=== PATIENT | male | born 1950 | race Two or more races ===

== ENCOUNTER 2019-01-06 19:10 | Emergency (ER) | payer OTHER ==
[~2019-01-06] VITALS: Ht 177.8 cm; Wt 74.8 kg
[~2019-01-06 19:10] MED LIST: AMILORIDE PO
[2019-01-06 20:45] LABS: Urine Bacteria NONE SEEN /hpf (None Seen); Urine Blood Negative /uL (Negative); Urine Mucus FEW (None Seen); Urine Specific Gravity 1.014 (1.001-1.035); Urine WBC <1 /hpf (0 - 3)
[2019-01-06 21:14] LABS: Basophils # (auto) 0 uL; Basophils % (auto) 0.7 % (0.0-2.0); Eosinophils # (auto) 0.1 uL; Lymphocytes # (auto) 0.6 uL; Monocytes # (auto) 0.3 uL; Nucleated Red Blood Cells % 0.1 %; White Blood Cell 3.2 10^3/uL (4.4-10.8)
[2019-01-06 21:17] LABS: Eosinophils % (auto) 3.2 % (0.0-7.0); Hematocrit 36.1 % (41.0-53.0); Lymphocytes % (auto) 19.1 % (10.0-50.0); Mean Corpuscular Hemoglobin 25.5 pg (28.0-32.0); Mean Corpuscular Hgb Conc. 33.4 g/dL (32.0-36.0); Mean Corpuscular Volume 76.5 fL (80.0-100.0); Neutrophils # (auto) 2.1 uL; Platelet Count (auto) 95 10^3/uL (140-450); Red Blood Cells 4.72 10^6/uL (4.5-5.90); Red Cell Distribution Width 14.4 % (11.8-14.3)
[2019-01-06 21:30] LABS: Alanine Aminotransferase 31 U/L (16-61); Albumin 3.6 g/dL (3.4-5.0); Amylase 117 U/L (25-115); Anion Gap 7 (5-15); Aspartate Aminotransferase 36 U/L (15-37); BUN/Creatinine Ratio 18.6; Blood Urea Nitrogen 24 mg/dL (7-18); Calcium 8.8 mg/dL (8.5-10.1); Carbon Dioxide 26 mmol/L (21-32); Chloride 109 mmol/L (98-107); GFR African American 71 mL/min; GFR Non-African American 59 mL/min; Glucose 105 mg/dL (74-106); Lipase 199 U/L (73-393); Potassium 3.1 mmol/L (3.5-5.1); Sodium 142 mmol/L (136-145)
[2019-01-06 21:46] LABS: Alkaline Phosphatase 92 U/L (45-117); Bilirubin, Total 0.4 mg/dL (0.2-1.0); Total Protein 7.9 g/dL (6.4-8.2)
[2019-01-06] MEDS ORDERED: POTASSIUM CHL 20 Meq TABLET PO ONE (22:45)
[2019-01-06] MEDS ORDERED: HYDROcodone-ACET 10/325MG TAB PO ONE (23:00)
[2019-01-06 23:19] LABS: INR 0.91 (0.9-1.15); Partial Thromboplastin Time 21.9 sec (23.78-33.04); Prothrombin Time 9.8 sec (9.27-12.13)
[2019-01-07 00:31] VITALS: BP 121/66
== END 2019-01-07 01:31 | disposition home or self-care (01) ==
LOC: ER 19:10
DX: D72.819 Decreased white blood cell count, unspecified (principal); E87.6 Hypokalemia; K43.9 Ventral hernia without obstruction or gangrene; F17.210 Nicotine dependence, cigarettes, uncomplicated; Z88.3 Allergy status to other anti-infective agents; Z88.8 Allergy status to other drugs, medicaments and biological substances; Z48.23 Encounter for aftercare following liver transplant
CPT/HCPCS: 36415; 71045; 74176; 80053; 81001; 82150; 83605; 83690; 83735; 85025; 85610; 85730

== ENCOUNTER 2021-03-10 11:09 | Inpatient (IN) | payer OTHER ==
[~2021-03-10] VITALS: Ht 180.3 cm; Wt 80.1 kg
[2021-03-10 12:30] LABS: Basophils # (auto) 0 10 ^3/uL (0-0.2); Basophils % (auto) 0.4 % (0.0-2.0); Eosinophils # (auto) 0.1 10 ^3/uL (0-0.8); Eosinophils % (auto) 1.3 % (0.0-7.0); Hematocrit 34.9 % (41.0-53.0); Hemoglobin 11.5 g/dL (13.5-17.5); Lymphocytes # (auto) 0.5 10 ^3/uL (0.4-5.4); Lymphocytes % (auto) 12.6 % (10.0-50.0); Mean Corpuscular Hemoglobin 28.6 pg (28.0-32.0); Mean Corpuscular Volume 86.5 fL (80.0-100.0); Monocytes # (auto) 0.3 10 ^3/uL (0-1.3); Monocytes % (auto) 6.8 % (0.0-12.0); Neutrophils # (auto) 3.3 10 ^3/uL (1.6-8.6); Neutrophils % (auto) 78.9 % (37.0-80.0); Platelet Count (auto) 116 10^3/uL (140-450); Red Blood Cells 4.03 10^6/uL (4.5-5.90); Red Cell Distribution Width 14.2 % (11.8-14.3); White Blood Cell 4.2 10^3/uL (4.4-10.8)
[2021-03-10] MEDS ORDERED: HYDROcodone-ACET 10/325MG TAB PO PRN (12:45)
[2021-03-10] MEDS ORDERED: ONDANSETRON HCL 4 MG/2 ML VIAL IV ONE (12:45)
[2021-03-10] MEDS ORDERED: MORPHINE SULF INJ 2 MG/ML SYRINGE 1ML IV PRN (12:45)
[2021-03-10] MEDS ORDERED: NITROGLYCERIN 0.4 MG SL TAB SL PRN (12:45)
[2021-03-10] MEDS ORDERED: ONDANSETRON HCL 4 MG/2 ML VIAL IV PRN (12:45)
[2021-03-10] MEDS ORDERED: MORPHINE SULFATE 4 MG/ML SYR/VIAL IV ONE (12:45)
[2021-03-10 12:46] LABS: INR 1.03 (0.9-1.15); Partial Thromboplastin Time 24.6 sec (23.0-31.2)
[2021-03-10 12:55] LABS: Albumin 3.8 g/dL (3.4-5.0); Potassium 3.9 mmol/L (3.5-5.1)
[2021-03-10 12:58] LABS: BUN/Creatinine Ratio 14.8; Bilirubin, Total 0.7 mg/dL (0.2-1.0); Total Protein 7.2 g/dL (6.4-8.2)
[2021-03-10] MEDS ORDERED: hydrALAZINE HCL 20 MG/ML VL IV PRN (13:00)
[2021-03-10] MEDS ORDERED: SODIUM CHLORIDE 0.9% 1,000 ML IV ONE (13:00)
[2021-03-10] MEDS: MORPHINE SULF INJ 2 MG/ML SYRINGE 1ML IV PRN ×2 (18:41→22:44)
[2021-03-10 22:00] VITALS: BP 107/54
[2021-03-10] MEDS ORDERED: METO25TA36 PO (23:12)
[2021-03-10] MEDS ORDERED: ATO40T PO (23:12)
[2021-03-10] MEDS ORDERED: PANT40TA2 PO (23:12)
[2021-03-10] MEDS ORDERED: CHLO25TA2 PO (23:12)
[2021-03-10] MEDS ORDERED: TACR1GRA PO ×2 (23:12)
[2021-03-10] MEDS ORDERED: AML5T GT (23:12)
[2021-03-10] MEDS ORDERED: FERR-20 PO (23:12)
[2021-03-10] MEDS ORDERED: MYCO250C PO (23:12)
[2021-03-11] MEDS: MORPHINE SULF INJ 2 MG/ML SYRINGE 1ML IV PRN ×3 (04:24→13:46)
[2021-03-11 05:00] VITALS: BP 116/53
[2021-03-11 06:15] LABS: Basophils # (auto) 0 10 ^3/uL (0-0.2); Basophils % (auto) 0.4 % (0.0-2.0); Eosinophils # (auto) 0.1 10 ^3/uL (0-0.8); Hematocrit 32.9 % (41.0-53.0); Lymphocytes # (auto) 0.6 10 ^3/uL (0.4-5.4); Lymphocytes % (auto) 13.6 % (10.0-50.0); Mean Corpuscular Hemoglobin 28.7 pg (28.0-32.0); Mean Corpuscular Hgb Conc. 33.3 g/dL (32.0-36.0); Mean Corpuscular Volume 86.1 fL (80.0-100.0); Monocytes # (auto) 0.5 10 ^3/uL (0-1.3); Monocytes % (auto) 10.9 % (0.0-12.0); Neutrophils # (auto) 3.1 10 ^3/uL (1.6-8.6); Neutrophils % (auto) 73.1 % (37.0-80.0); Nucleated Red Blood Cells % 0.1 %; Platelet Count (auto) 112 10^3/uL (140-450); Red Blood Cells 3.82 10^6/uL (4.5-5.90); White Blood Cell 4.2 10^3/uL (4.4-10.8)
[2021-03-11 06:44] LABS: Potassium 3.8 mmol/L (3.5-5.1)
[2021-03-11 06:59] LABS: Albumin 3.5 g/dL (3.4-5.0); Bilirubin, Total 0.8 mg/dL (0.2-1.0); Calcium 8.3 mg/dL (8.5-10.1); Total Protein 6.5 g/dL (6.4-8.2)
[2021-03-11 07:06] LABS: Urine Bacteria FEW /hpf (None Seen); Urine Blood Negative /uL (Negative); Urine Hyaline Cast FEW /lpf (0 - 2); Urine Specific Gravity 1.017 (1.001-1.035); Urine WBC 2 /hpf (0 - 3)
[2021-03-11 08:52] VITALS: BP 120/58
[2021-03-11] MEDS ORDERED: ATOR80TA PO (09:29)
[2021-03-11] MEDS ORDERED: MAGN1TAB PO (09:29)
[2021-03-11] MEDS ORDERED: FERR-7 PO (09:29)
[2021-03-11] MEDS ORDERED: CHOL1CAP PO (09:29)
[2021-03-11] MEDS ORDERED: fentaNYL CITRATE 100 MCG/2 ML VL ONE ×2 (16:51→18:28)
[2021-03-11] MEDS ORDERED: PROPOFOL 10 MG/ML 20 ML IV ONE (16:52)
[2021-03-11] MEDS ORDERED: ACETAMINOPHEN 325 MG TAB PO PRN (17:15)
[2021-03-11] MEDS ORDERED: ONDANSETRON HCL 4 MG/2 ML VIAL ONE (17:49)
[2021-03-11] MEDS ORDERED: METOCLOPRAMIDE HCL 5MG/ml INJ 2ml VIAL ONE ×2 (17:49→17:54)
[2021-03-11] MEDS ORDERED: KETOROLAC TROMETH 30 MG/ML 1ML VIAL ONE (17:53)
[2021-03-11] MEDS ORDERED: ePHEDrine SULFATE 50 MG/ML AMP ONE (17:54)
[2021-03-11] MEDS ORDERED: ceFAZolin 1GM VL ONE (17:54)
[2021-03-11] MEDS ORDERED: diphenhdrAMINE HCL 50 MG/1 ML VL ONE (17:54)
[2021-03-11] MEDS ORDERED: ETOMIDATE (2MG/ML) 20ML VIAL IV ONE (17:55)
[2021-03-11] MEDS ORDERED: PATIENTS OWN MEDICATION (Ferrous Sulfate 325 MG) PO SCH (18:00)
[2021-03-11] MEDS ORDERED: ONDANSETRON HCL 4 MG/2 ML VIAL IV PRN (18:45)
[2021-03-11] MEDS ORDERED: HYDROmorphone HCL 2 MG/ML VL IV PRN (18:45)
[2021-03-11] MEDS: HYDROmorphone HCL 2 MG/ML VL IV PRN ×2 (18:55→23:03)
[2021-03-11] MEDS: D5W/LACTATED RINGERS 1,000 ML IV SCH (20:00)
[2021-03-11] MEDS: ceFAZolin 1GM 2 GM in D5W 5% 100 ML IV SCH (21:47)
[2021-03-11] MEDS: MYCOPHENOLATE 250 MG CAP PO SCH (21:48)
[2021-03-11] MEDS: SODIUM CHLOR 0.9% PF (SALINE LOCK) 10ML VIAL/SYR IV SCH (21:48)
[2021-03-11] MEDS: MAGNESIUM OXIDE 400 MG TAB PO SCH (21:49)
[2021-03-11 22:00] VITALS: BP 140/66
[2021-03-11] MEDS ORDERED: ATORVASTATIN 20 MG TAB PO SCH (22:00)
[2021-03-11] MEDS ORDERED: METOPROLOL SUCCINATE XL 50 MG TAB PO SCH (22:00)
[2021-03-11] MEDS ORDERED: PATIENTS OWN MEDICATION (Metoprolol Succinate (Toprol Xl) 1 TAB) PO SCH (22:00)
[2021-03-11] MEDS ORDERED: TACROLIMUS 1 MG CAP PO SCH (22:00)
[2021-03-11] MEDS ORDERED: TACROLIMUS 1 MG PO SCH (22:00)
[2021-03-11] MEDS ORDERED: MAGNESIUM OXIDE 500 MG PO SCH (22:00)
[2021-03-12] MEDS: D5W/LACTATED RINGERS 1,000 ML IV SCH (03:15)
[2021-03-12 05:23] VITALS: BP 97/50
[2021-03-12] MEDS: ceFAZolin 1GM 2 GM in D5W 5% 100 ML IV SCH (05:35)
[2021-03-12 05:39] LABS: Basophils # (auto) 0 10 ^3/uL (0-0.2); Basophils % (auto) 0.4 % (0.0-2.0); Eosinophils # (auto) 0.1 10 ^3/uL (0-0.8); Eosinophils % (auto) 3.1 % (0.0-7.0); Hematocrit 28.1 % (41.0-53.0); Hemoglobin 9.4 g/dL (13.5-17.5); Lymphocytes # (auto) 0.4 10 ^3/uL (0.4-5.4); Lymphocytes % (auto) 15.8 % (10.0-50.0); Mean Corpuscular Hemoglobin 28.8 pg (28.0-32.0); Mean Corpuscular Hgb Conc. 33.5 g/dL (32.0-36.0); Mean Corpuscular Volume 85.9 fL (80.0-100.0); Monocytes # (auto) 0.3 10 ^3/uL (0-1.3); Monocytes % (auto) 12.1 % (0.0-12.0); Neutrophils # (auto) 1.9 10 ^3/uL (1.6-8.6); Neutrophils % (auto) 68.6 % (37.0-80.0); Platelet Count (auto) 76 10^3/uL (140-450); Red Blood Cells 3.27 10^6/uL (4.5-5.90); Red Cell Distribution Width 13.7 % (11.8-14.3); White Blood Cell 2.8 10^3/uL (4.4-10.8)
[2021-03-12] MEDS: SODIUM CHLOR 0.9% PF (SALINE LOCK) 10ML VIAL/SYR IV SCH ×2 (05:50→14:36)
[2021-03-12 05:54] LABS: BUN/Creatinine Ratio 17.2; Calcium 8.2 mg/dL (8.5-10.1); Potassium 3.7 mmol/L (3.5-5.1)
[2021-03-12 08:33] VITALS: BP 104/60
[2021-03-12] MEDS ORDERED: PATIENTS OWN MEDICATION (Ferrous Sulfate (Iron) 325 MG) PO SCH (10:00)
[2021-03-12] MEDS ORDERED: amLODIPine BESYLATE 5 MG TAB PO SCH (10:00)
[2021-03-12] MEDS ORDERED: TACROLIMUS 2 MG PO SCH (10:00)
[2021-03-12] MEDS ORDERED: Chlorthalidone 25 MG TAB PO SCH (10:00)
[2021-03-12] MEDS ORDERED: FERROUS SULFATE 325mg EC TAB PO SCH (10:00)
[2021-03-12] MEDS ORDERED: PANTOPRAZOLE 40 MG TAB PO SCH (10:00)
[2021-03-12] MEDS ORDERED: CHOLECALCIFEROL (VITD3) 2,000 UNIT CAP/TAB PO SCH (10:00)
[2021-03-12] MEDS ORDERED: CHOLECALCIFEROL 5000 UNIT PO SCH (10:00)
[2021-03-12] MEDS ORDERED: ENOXAPARIN SOD 40 MG/0.4 ML SYRINGE SC SCH (10:00)
[2021-03-12] MEDS ORDERED: PATIENTS OWN MEDICATION (Atorvastatin Calcium (Lipitor) 1 TAB) PO SCH (10:00)
[2021-03-12] MEDS ORDERED: TACROLIMUS 1 MG CAP PO SCH (10:00)
[2021-03-12] MEDS: HYDROmorphone HCL 2 MG/ML VL IV PRN (10:44)
[2021-03-12] MEDS: MAGNESIUM OXIDE 400 MG TAB PO SCH (10:44)
[2021-03-12] MEDS: MYCOPHENOLATE 250 MG CAP PO SCH (10:47)
[2021-03-12 13:00] VITALS: BP 112/53
[2021-03-12 16:57] VITALS: BP 108/49
[2021-03-12] MEDS: MORPHINE SULF INJ 2 MG/ML SYRINGE 1ML IV PRN (17:25)
== END 2021-03-12 21:00 | DRG 493 ==
LOC: ER 11:09 → EDBD 11:09 → CENTRAL 12:45 → OVERFLOW 15:52 → WEST WING 18:20
PROVIDERS: ADMIT Internal Medicine; ATTEND Internal Medicine
PROC: BQ1DZZZ Fluoroscopy of Right Lower Leg (ICD-10-PCS; 2021-03-11)
PROC: 0QSG35Z Reposition Right Tibia with External Fixation Device, Percutaneous Approach (ICD-10-PCS; principal; 2021-03-11 17:23)
DX: S82.141A Displaced bicondylar fracture of right tibia, initial encounter for closed fracture (principal); Z94.4 Liver transplant status; W11.XXXA Fall on and from ladder, initial encounter; I10 Essential (primary) hypertension; E78.5 Hyperlipidemia, unspecified; D64.9 Anemia, unspecified; Z20.822 Contact with and (suspected) exposure to COVID-19; Z85.05 Personal history of malignant neoplasm of liver; Z88.8 Allergy status to other drugs, medicaments and biological substances; Y93.89 Activity, other specified; Y92.89 Other specified places as the place of occurrence of the external cause; Y99.8 Other external cause status; S82.401A Unspecified fracture of shaft of right fibula, initial encounter for closed fracture
CPT/HCPCS: 36415; 71045; 73560; 73562; 73590; 73700; 76000; 80048; 80053; 81001; 85025; 85610; 85730; 86850; 86900; 86901; 87426; 93005; 96361; 96374; 96375; 97163; G0378; J0690; J1885; J2405; J2704; J7060; J7507; J7517

== ENCOUNTER 2021-04-03 10:24 | Inpatient (IN) | payer OTHER ==
[~2021-04-03] VITALS: Ht 177.8 cm; Wt 77.5 kg
[~2021-04-03 10:24] MED LIST changes: -AMILORIDE PO; +AML5T GT; +ATOR80TA PO; +CHLO25TA2 PO; +FERR-7 PO; +MAGN1TAB PO; +METO25TA36 PO; +MYCO250C PO; +PANT40TA2 PO; +TACR1GRA PO
[2021-04-03] MEDS ORDERED: ceFAZolin 1GM/50ML 100 ML IV ONE (12:17)
[2021-04-03] MEDS ORDERED: ePHEDrine SULFATE 50 MG/ML AMP IV ONE (12:31)
[2021-04-03] MEDS ORDERED: ONDANSETRON HCL 4 MG/2 ML VIAL IV ONE (12:31)
[2021-04-03] MEDS ORDERED: TETRACAINE 1% INJ 2 ML VIAL IJ ONE (12:36)
[2021-04-03] MEDS ORDERED: MORPHINE SULF(PF) 0.5MG/ML 10ML VIAL ONE (12:39)
[2021-04-03] MEDS ORDERED: fentaNYL CITRATE 100 MCG/2 ML VL ONE (12:40)
[2021-04-03] MEDS ORDERED: MIDAZOLAM HCL 1MG/1ML-2 ML VIAL ONE (12:40)
[2021-04-03] MEDS ORDERED: PROPOFOL 10 MG/ML 20 ML IV ONE (12:56)
[2021-04-03] MEDS ORDERED: diphenhdrAMINE HCL 50 MG/1 ML VL IV PRN (15:00)
[2021-04-03] MEDS ORDERED: NALBUPHINE HCL 10 MG/1ml INJECTION SUBCUT ONE (15:00)
[2021-04-03] MEDS ORDERED: HYDROmorphone HCL 2 MG/ML VL IV PRN (15:00)
[2021-04-03] MEDS ORDERED: ONDANSETRON HCL 4 MG/2 ML VIAL IV PRN (15:00)
[2021-04-03] MEDS ORDERED: NALOXONE HCL 0.4 MG/ML VIAL IV PRN (15:00)
[2021-04-03] MEDS: D5W/LACTATED RINGERS 1,000 ML IV SCH (15:15)
[2021-04-03] MEDS ORDERED: MORPHINE SULF INJ 2 MG/ML SYRINGE 1ML IV PRN (15:15)
[2021-04-03] MEDS ORDERED: NITROGLYCERIN 0.4 MG SL TAB SL PRN (15:15)
[2021-04-03] MEDS ORDERED: ACETAMINOPHEN 325 MG TAB PO PRN (15:15)
[2021-04-03 16:46] VITALS: BP 91/40
[2021-04-03] MEDS: HYDROmorphone HCL 2 MG/ML VL IV PRN (17:50)
[2021-04-03 20:00] VITALS: BP 102/54
[2021-04-03 21:00] VITALS: BP 103/48
[2021-04-03] MEDS: MYCOPHENOLATE 250 MG CAP PO SCH (21:06)
[2021-04-03] MEDS: ceFAZolin 1GM 2 GM in D5W 5% 100 ML IV SCH (21:06)
[2021-04-03] MEDS: SODIUM CHLOR 0.9% PF (SALINE LOCK) 10ML VIAL/SYR IV SCH (21:06)
[2021-04-03] MEDS: METOPROLOL SUCCINATE XL 50 MG TAB PO SCH (21:16)
[2021-04-03 22:00] VITALS: BP 91/58
[2021-04-03] MEDS: HYDROcodone-ACET 10/325MG TAB PO PRN (22:28)
[2021-04-03 23:00] VITALS: BP 105/50
[2021-04-04] VITALS (17 sets, daily range): BP systolic 91–121; BP diastolic 49–79
[2021-04-04] MEDS: HYDROmorphone HCL 2 MG/ML VL IV PRN ×5 (03:51→21:32)
[2021-04-04] MEDS: D5W/LACTATED RINGERS 1,000 ML IV SCH ×2 (04:02→13:38)
[2021-04-04] MEDS: ceFAZolin 1GM 2 GM in D5W 5% 100 ML IV SCH (05:19)
[2021-04-04] MEDS: SODIUM CHLOR 0.9% PF (SALINE LOCK) 10ML VIAL/SYR IV SCH ×3 (05:20→21:31)
[2021-04-04] MEDS: PANTOPRAZOLE 40 MG TAB PO SCH (09:48)
[2021-04-04] MEDS: amLODIPine BESYLATE 5 MG TAB PO SCH (09:49)
[2021-04-04] MEDS: RIVAROXABAN 10 MG TAB PO SCH (09:49)
[2021-04-04] MEDS: HYDROcodone-ACET 10/325MG TAB PO PRN ×2 (09:52→18:27)
[2021-04-04] MEDS: Chlorthalidone 25 MG TAB PO SCH (09:53)
[2021-04-04] MEDS: MYCOPHENOLATE 250 MG CAP PO SCH ×2 (09:54→21:32)
[2021-04-04] MEDS: TACROLIMUS 1 MG CAP PO SCH (09:54)
[2021-04-04] MEDS: METOPROLOL SUCCINATE XL 50 MG TAB PO SCH (21:22)
[2021-04-04] MEDS: ATORVASTATIN 20 MG TAB PO SCH (21:32)
[2021-04-05] MEDS: D5W/LACTATED RINGERS 1,000 ML IV SCH ×2 (00:38→09:34)
[2021-04-05] MEDS: HYDROmorphone HCL 2 MG/ML VL IV PRN ×5 (04:18→23:55)
[2021-04-05 05:11] VITALS: BP 115/51
[2021-04-05] MEDS: SODIUM CHLOR 0.9% PF (SALINE LOCK) 10ML VIAL/SYR IV SCH ×3 (05:25→21:46)
[2021-04-05 09:25] VITALS: BP 115/63
[2021-04-05] MEDS: TACROLIMUS 1 MG CAP PO SCH (09:31)
[2021-04-05] MEDS: MYCOPHENOLATE 250 MG CAP PO SCH ×2 (09:31→21:46)
[2021-04-05] MEDS: RIVAROXABAN 10 MG TAB PO SCH (09:31)
[2021-04-05] MEDS: PANTOPRAZOLE 40 MG TAB PO SCH (09:33)
[2021-04-05] MEDS: amLODIPine BESYLATE 5 MG TAB PO SCH (09:33)
[2021-04-05] MEDS: Chlorthalidone 25 MG TAB PO SCH (09:33)
[2021-04-05] MEDS: HYDROcodone-ACET 10/325MG TAB PO PRN (11:50)
[2021-04-05 13:19] VITALS: BP 114/56
[2021-04-05 17:00] VITALS: BP 108/59
[2021-04-05] MEDS: METOPROLOL SUCCINATE XL 50 MG TAB PO SCH (21:46)
[2021-04-05] MEDS: ATORVASTATIN 20 MG TAB PO SCH (21:46)
[2021-04-05 22:00] VITALS: BP 105/46
[2021-04-06 05:00] VITALS: BP 98/55
[2021-04-06] MEDS: SODIUM CHLOR 0.9% PF (SALINE LOCK) 10ML VIAL/SYR IV SCH ×3 (05:18→21:35)
[2021-04-06] MEDS: HYDROcodone-ACET 10/325MG TAB PO PRN ×3 (05:53→17:14)
[2021-04-06 09:00] VITALS: BP 94/56
[2021-04-06] MEDS: Chlorthalidone 25 MG TAB PO SCH (10:00)
[2021-04-06] MEDS: amLODIPine BESYLATE 5 MG TAB PO SCH (10:00)
[2021-04-06] MEDS: TACROLIMUS 1 MG CAP PO SCH (10:10)
[2021-04-06] MEDS: MYCOPHENOLATE 250 MG CAP PO SCH ×2 (10:10→21:36)
[2021-04-06] MEDS: PANTOPRAZOLE 40 MG TAB PO SCH (10:10)
[2021-04-06] MEDS: RIVAROXABAN 10 MG TAB PO SCH (10:11)
[2021-04-06 13:00] VITALS: BP 112/50
[2021-04-06] MEDS: HYDROmorphone HCL 2 MG/ML VL IV PRN ×2 (13:24→20:34)
[2021-04-06 17:00] VITALS: BP 124/68
[2021-04-06] MEDS: ATORVASTATIN 20 MG TAB PO SCH (21:36)
[2021-04-06] MEDS: METOPROLOL SUCCINATE XL 50 MG TAB PO SCH (21:37)
[2021-04-06 22:00] VITALS: BP 112/63
[2021-04-07] MEDS: HYDROmorphone HCL 2 MG/ML VL IV PRN (04:46)
[2021-04-07 05:00] VITALS: BP 108/57
[2021-04-07] MEDS: SODIUM CHLOR 0.9% PF (SALINE LOCK) 10ML VIAL/SYR IV SCH ×2 (05:40→14:00)
[2021-04-07 08:54] VITALS: BP 108/57
[2021-04-07] MEDS: Chlorthalidone 25 MG TAB PO SCH (10:30)
[2021-04-07] MEDS: HYDROcodone-ACET 10/325MG TAB PO PRN (10:31)
[2021-04-07] MEDS: RIVAROXABAN 10 MG TAB PO SCH (10:33)
[2021-04-07] MEDS: PANTOPRAZOLE 40 MG TAB PO SCH (10:33)
[2021-04-07] MEDS: MYCOPHENOLATE 250 MG CAP PO SCH (10:34)
[2021-04-07] MEDS: amLODIPine BESYLATE 5 MG TAB PO SCH (10:34)
[2021-04-07] MEDS: TACROLIMUS 1 MG CAP PO SCH (10:35)
[2021-04-07 13:00] VITALS: BP 123/61
[2021-04-07 15:01] VITALS: BP 123/61
== END 2021-04-07 15:37 | disposition home or self-care (01) | DRG 493 ==
LOC: SUR 10:24 → TELE 15:05 → CENTRAL 16:20 → TELE-CENTR 17:28
PROVIDERS: ADMIT Orthopaedic Surgery; ATTEND Orthopaedic Surgery
PROC: BW1C1ZZ Fluoroscopy of Lower Extremity using Low Osmolar Contrast (ICD-10-PCS; 2021-04-03)
PROC: 0QPGX5Z Removal of External Fixation Device from Right Tibia, External Approach (ICD-10-PCS; 2021-04-03)
PROC: 0QSG04Z Reposition Right Tibia with Internal Fixation Device, Open Approach (ICD-10-PCS; principal; 2021-04-03 12:31)
DX: S82.141A Displaced bicondylar fracture of right tibia, initial encounter for closed fracture (principal); Z94.4 Liver transplant status; R60.9 Edema, unspecified; X58.XXXA Exposure to other specified factors, initial encounter; Z79.899 Other long term (current) drug therapy; Y93.89 Activity, other specified; Y92.89 Other specified places as the place of occurrence of the external cause; Y99.8 Other external cause status
CPT/HCPCS: 73560; 73562; 76001; 86850; 86900; 86901; 87081; 93971; 97110; 97116; 97530; G0378; J0690; J2250; J2405; J2704; J7060; J7507; J7517

== ENCOUNTER 2025-05-23 14:36 | Emergency (ER) | payer OTHER ==
[~2025-05-23] VITALS: Ht 177.8 cm; Wt 72.4 kg
[2025-05-23] MEDS: diphenhdrAMINE HCL 50 MG/1 ML VL IV ONE (00:31)
[2025-05-23] MEDS: MORPHINE SULFATE 4 MG/ML SYR/VIAL IV ONE (00:31)
[2025-05-23] MEDS: ONDANSETRON HCL 4 MG/2 ML VIAL IV ONE (00:31)
[~2025-05-23 14:36] MED LIST changes: -TACR1GRA PO
--- NOTE | 2025-05-23 15:32 | ED.PDOC ---
History of Present Illness HPI Comments Patient is a 74 year old male with the past medical history of HTN, Liver cancer s/o Liver transplant in 2017 came to the ED with the c/c of abd pain, blood in stool and orange colored urine. Patient reports that on wednesday he started to have abd pain and noticed bright red blood in stool along with orange color urine. The blood in stool has decreased over the past 3 days and now only small streaks of blood and has been having loose watery diarrhoea 5-6 episodes in a day. Patient also reports of abd pain, mild to moderate , intermittant, and in the Right lumbar region. He also reports of being nauseous and poor appetite Chief Complaint: GI Bleed Time Seen by MD: 14:39 Primary Care Provider: NONE Reviewed Notes: Nurses Notes, Medications, Allergies Allergies: Coded Allergies: Levofloxacin (Verified Allergy, Severe, 04/02/21) itching/flushing Tramadol (Verified Allergy, Severe, 04/02/21) itching/restlessness/rash Benzyl Alcohol (Verified Allergy, Unknown, 03/10/21) Gabapentin (Verified Allergy, Unknown, 03/10/21) Peginterferon Yohannes-2A (Verified Allergy, Unknown, 03/10/21) Home Meds Reported Medications Ferrous Sulfate (Iron) 325 Mg Tab, 325 MG PO DAILY, TAB 03/11/21 Magnesium Oxide (Magnesium Oxide) 500 Mg Tab, 500 MG PO BID, TAB 03/11/21 Atorvastatin Calcium (Lipitor) 80 Mg Tab, 1 TAB PO DAILY, #30 TAB 5 Refills 03/11/21 Chlorthalidone (Chlorthalidone) 25 Mg Tab, 25 MG PO DAILY, TAB 03/10/21 Metoprolol Succinate (Toprol Xl) 25 Mg Tab, 1 TAB PO HS, #30 TAB 5 Refills 03/10/21 Amlodipine Besylate (NORVASC TABLET) 5 Mg Tb, 10 MG GT DAILY, TAB 03/10/21 Pantoprazole Sodium Sesquihydr (Protonix) 40 Mg Tab, 40 MG PO DAILY, #30 TAB 03/10/21 Mycophenolate Mofetil (Cellcept) 250 Mg Cap, 1 CAP PO BID, #180 CAP 3 Refills 03/10/21 Information Source: Patient Mode of Arrival: Ambulatory Past Medical History PAST MEDICAL HISTORY: Cancer, High Lipids, HTN, Liver Surgical History: Cholecystectomy Surgical History (Other): Liver transplant Family History Family History: Reviewed,noncontributory to illness Social History Smoker: Non-Smoker Alcohol: Denies ETOH Use Drugs: Denies Drug Use Lives In: Home Constitutional: reports: fatigue EENTM: denies: blurred vision, double vision, ear bleeding, ear discharge, ear drainage, ear pain, ear ringing, eye pain, eye redness, hearing loss, mouth pain, mouth swelling, nasal discharge, nose bleeding, nose congestion, nose pain, photophobia, tearing, throat pain, throat swelling, voice changes, others Respiratory: denies: cough, hemoptysis, orthopnea, SOB at rest, shortness of breath, SOB with excertion, stridor, wheezing, others Cardiovascular: denies: chest pain, dizzy spells, diaphoresis, Dyspnea on exertion, edema, irregular heart beat, left arm pain, lightheadedness, pal pitations, PND, syncope, others Gastrointestinal: reports: abdominal pain, blood streaked bowels, diarrhea, nausea, poor appetite Genitourinary: reports: hematuria Neurological: denies: dizziness, fainting, headache, left sided numbness, left sided weakness, numbness, paresthesia, pre-existing deficit, right sided numbness, right sided weakness, seizure, speech problems, tingling, tremors, weakness, others Musculoskeletal: denies: back pain, gout, joint pain, joint swelling, muscle pain, muscle stiffness, neck pain, others Integumetry: denies: bruises, change in color, change in hair/nails, dryness, laceration, lesions, lumps, rash, wounds, others Allergic/Immunocompromised: denies: Difficulty Healing, Frequent Infections, Hives, Itching, others Hematologic/Lymphatic: denies: anemia, blood clots, easy bleeding, easy bruising, swollen glands, others Endocrine: denies: excessive hunger, excessive sweating, excessive thirst, excessive urination, flushing, intolerance to cold, intolerance to heat, unexplained weight gain, unexplained weight loss, others Psychiatric: denies: anxiety, bipolar disorder, depression, hopeless, panic disorder, schizophrenia, sleepless, suicidal, others Physical Exam General Appearance: Normal HEENT: PERRL/EOMI, Pharynx Normal, Scleral Icterus (L), Scleral Icterus (R) Neck: Full Range of Motion, Non-Tender, Normal, Normal Inspection Respiratory: Chest Non-Tender, Lungs Clear, No Accessory Muscle Use, No Respiratory Distress, Normal Breath Sounds Cardiovascular: No Edema, No JVD, No Murmur, No Gallop, Normal Peripheral Pulses, Regular Rate/Rhythm Breast Exam: Deferred Gastrointestinal: RUQ, Tenderness, Other (Right lumbar) Genitalia: Deferred Pelvic: Deferred Rectal: Deferred Extremities: No calf tenderness, Normal capillary refill, Normal inspection, Normal range of motion, Non-tender, No pedal edema Neurologic: Alert, qa consultant II-XII nml as Tested, No Motor Deficits, Normal Affect, Normal Mood, No Sensory Deficits Cerebellar Function: Normal Reflexes: NOT DONE Skin: Bruises (B/L forearms) Lymphatic: NOT DONE Was a procedure done? Was a procedure done?: No EKG EKG : Pulse Rate (adult): 58 [place]: Normal Cardiac Rhythm: NSR Block: 1 Hypertrophy: None ST: Normal Differential Dx Considerations may include: Anal varices, hemorrhoids, gastroenteritis, colitis, diverticulitis, UTI, acute hepaitits X-Ray, Labs, Meds, VS Vital Signs Date Time Temp Pulse Resp B/P (MAP) Pulse Ox O2 Delivery O2 Flow Rate FiO2 05/24/25 02:23 98.4 58 21 115/58 (77) 96 98.4 05/24/25 02:00 59 15 114/54 (74) 93 05/24/25 00:31 116/70 05/24/25 00:00 68 20 115/58 (77) 95 05/23/25 22:00 90 12 96 Room Air* 0 21 05/23/25 22:00 97.6 90 12 161/77 (105) 96 97.6 05/23/25 20:00 55 05/23/25 17:25 56 18 98 Room Air 05/23/25 17:25 98.6 56 18 133/64 (87) 98 98.6 05/23/25 15:32 58 05/23/25 14:52 58 05/23/25 14:46 98.6 57 18 113/56 (75) 96 98.6 Lab Test 05/23/25 23:39 05/23/25 16:59 05/23/25 15:50 Range/Units Stool Occult Blood Positive Negative Stool Occult Blood Sample #3 Negative Urine Color Dark-yellow Yellow Urine Clarity Clear Clear Urine pH 5.5 5.0-9.0 Urine Specific [place] 1.019 1.001-1.035 Urine Protein Negative Negative Urine Ketones Negative Negative Urine Blood Negative Negative /uL Urine Nitrite Negative Negative Urine Bilirubin 1+ Negative Urine Urobilinogen 2 H Negative mg/dL Urine Leukocyte Esterase Negative Negative /uL Urine RBC 1 0 - 3 /hpf Urine Microscopic WBC 3 0-3 /HPF Urine Squamous Epithelial Cells Few <5 /hpf Urine Bacteria Few H None Seen /hpf Urine Hyaline Casts Mod 0 - 2 /lpf Urine Mucus Few None Seen Urine Glucose Normal Normal mg/dL White Blood Count 4.8 4.4-10.8 10^3/uL Red Blood Count 4.31 L 4.5-5.90 10^6/uL Hemoglobin 12.4 L 13.5-17.5 g/dL Hematocrit 37.7 L 41.0-53.0 % Mean Corpuscular Volume 87.5 80.0-100.0 fL Mean Corpuscular Hemoglobin 28.7 28.0-32.0 pg Mean Corpuscular Hemoglobin Concent 32.8 32.0-36.0 g/dL Red Cell Distribution Width 16.1 H 11.8-14.3 % Platelet Count 190 140-450 10^3/uL Mean Platelet Volume 8.6 6.9-10.8 fL Neutrophils (%) (Auto) 74.7 37.0-80.0 % Lymphocytes (%) (Auto) 11.6 10.0-50.0 % Monocytes (%) (Auto) 11.1 0.0-12.0 % Eosinophils (%) (Auto) 2.2 0.0-7.0 % Basophils (%) (Auto) 0.4 0.0-2.0 % Neutrophils # (Auto) 3.6 1.6-8.6 10 ^3/uL Lymphocytes # (Auto) 0.6 0.4-5.4 10 ^3/uL Monocytes # (Auto) 0.5 0-1.3 10 ^3/uL Eosinophils # (Auto) 0.1 0-0.8 10 ^3/uL Basophils # (Auto) 0 0-0.2 10 ^3/uL Nucleated Red Blood Cells 0.0 % Sodium Level 137 136-145 mmol/L Potassium Level 4.3 3.5-5.1 mmol/L Chloride Level 107 98-107 mmol/L Carbon Dioxide Level 22 20-31 mmol/L Anion Gap 8 5-15 Blood Urea Nitrogen 40 H 9-23 mg/dL Creatinine 1.78 H 0.700-1.30 mg/dL Glomerular Filtration Rate Calc 40 >90 mL/min BUN/Creatinine Ratio 22.5 H 10.0-20.0 Serum Glucose 107 H 74-106 mg/dL Calcium Level 9.9 8.7-10.4 mg/dL Total Bilirubin 3.2 H 0.2-1.0 mg/dL Aspartate Amino Transferase (AST) 257 H 13-40 U/L Alanine Aminotransferase (ALT) 366 H 7-40 U/L Alkaline Phosphatase 485 H 46-116 U/L Total Protein 6.3 5.7-8.2 g/dL Albumin 4.1 3.2-4.8 g/dL Current Medications Medications (Trade) Dose Ordered Sig/Shama Route Start Time Stop Time Status Last Admin Fentanyl Citrate 12.5 mcg ONCE ONCE IV 05/24/25 00:15 05/24/25 00:16 DC 05/24/25 00:31 Patient 74 y/o male came to the ED with complaints of abd pain, blood in stool and dark colored urine. On exam patient had RUQ/Right lumber quadrant abd tenderness, scleral icterus. CT abd/pelvis was done which showed Severe dilatation of the CBD, intrahepatic ducts and pancreatic duct with measurements as above. Suspected pancreatic head region mass /neoplasm as described measuring approximately 3.9 x 3.8 cm. Patient does report h/o Liver cancer s/p liver transplant in 2017 and is currently on tacrolimus. Patient will need further inpatient management and possible ERCP. X-Ray, Labs, Meds, VS Comment Addendum by Dr. Fabienne Edmond I discussed the case with Dr. Garza, who recommended that the patient be transferred for ERCP and endoscopic ultrasound. He stated he would contact [facility] skilled nursing case manager to arrange for the patient to be transferred. I was advised by our secretary receptionist that the [facility] skilled nursing case manager called and stated they were not going to assist with transfer, as the patient is still an ER patient, and that we would have to arrange for transfer. [facility] was contacted and the information was provided. We were advised that they would call us back after they contacted their specialist and arranged for a bed assignment. As of 2318, we have not received any follow-up from [facility]. [facility] for contacted and are at capacity, so could not accept the patient. We will attempt to contact [facility]. Patient endorsed to the overnight ED physician Dr. Quintana pending transfer. Overnight patient was accepted at [facility] and was transferred Time of 1ST Reevaluation: 17:07 Reevaluation 1ST: Unchanged Patient Education/Counseling: Diagnosis, Treatment Family Education/Counseling: No Family Present SEPSIS Sepsis Screen Date sepsis recognized/suspect: May 23, 2025 Time Sepsis recognized/suspect: 1450 Recent Procedure: No On Antibiotic Therapy: No Respiratory Rate >20: No Heart Rate >90: No Temp<36 C (96.8 F) or >38.3 C: No SBP <90 or MAP <65 mmHG: No New Acute Mental Status Change: No Is the patient on CPAP, BIPAP,: No Physician Orders Ct Ab Pel Wo Con-No Oral Or Iv (05/23/25 15:12) Imaging Transfer Request (05/23/25 17:57) Vital Signs Date Time Temp Pulse Resp B/P (MAP) Pulse Ox O2 Delivery O2 Flow Rate FiO2 05/24/25 02:23 98.4 58 21 115/58 (77) 96 98.4 05/24/25 02:00 59 15 114/54 (74) 93 05/24/25 00:31 116/70 05/24/25 00:00 68 20 115/58 (77) 95 05/23/25 22:00 90 12 96 Room Air* 0 21 05/23/25 22:00 97.6 90 12 161/77 (105) 96 97.6 05/23/25 20:00 55 05/23/25 17:25 56 18 98 Room Air 05/23/25 17:25 98.6 56 18 133/64 (87) 98 98.6 05/23/25 15:32 58 05/23/25 14:52 58 05/23/25 14:46 98.6 57 18 113/56 (75) 96 98.6 Laboratory Tests Test 05/23/25 15:50 White Blood Count 4.8 10^3/uL (4.4-10.8) Medications Medications Dose Ordered Sig/Shama Route Start Time Stop Time Status Last Admin Dose Admin Fentanyl Citrate 12.5 mcg ONCE ONCE IV 05/24/25 00:15 05/24/25 00:16 DC 05/24/25 00:31 Departure 1 Departure Time of Disposition: 02:22 Impression: Primary Impression: Mass of head of pancreas Additional Impressions: Dilated cbd, acquired Hyperbilirubinemia Transaminitis Acute kidney injury superimposed on CKD Disposition: 51 HOSPICE/MEDICAL FACILITY (transferred to [facility] for EUS/ERCP (patient had liver transplant at [facility] in 2017)) Condition: Stable Critical Care Note Critical Care Time?: No Stability Stability form required: No Heart Score Heart Score: Heart Score Response (Comments) Value History N/A 0 EKG N/A 0 Age N/A 0 Risk Factors N/A 0 Troponin N/A 0 Total 0 JALIL GARCÍA May 23, 2025 15:32 PILAR OTOOLE MD May 23, 2025 23:20
--- NOTE | 2025-05-23 16:00 | DVH ---
Indication: h/o Liver transplant, ABD pain, diarrhoea, hematochezia Technique: CT axial images of the abdomen and pelvis are obtained without contrast. Coronal and sagit arnel reformats were obtained. Radiation Dose Information: CTDI volume is 7.5 mGy. Dose-length product is 456.23 mGy*cm Comparison: None FINDINGS: There is limited interpretation of the abdomen and pelvis without administration of intravenous contr ast. The lung bases demonstrate atelectasis. Adrenal glands, spleen unremarkable. Severe dilatation of the pancreatic duct up to 1.7 cm. Dilatati on of the CBD up to 1.5 cm. Dilatation of intrahepatic ducts up to 9 mm. Suspected heterogeneous mass in the pancreatic head region measuring 3.9 x 3.8 cm. Kidneys demonstrate no hydronephrosis. Stomach is partially distended. Small bowel loops are normal in caliber. Colonic diverticula. Moderate volume stool in the colon. Normal appendix. Abdominal aortic atherosclerotic disease. Bladder partially distended. No free pelvic fluid. No ingui nal lymphadenopathy. Moderate thoracolumbar degenerative disc disease. 5 mm anterolisthesis of L4 upon L5. Moderate lumba r facet hypertrophic changes. IMPRESSION: Severe dilatation of the CBD, intrahepatic ducts and pancreatic duct with measurements as above. Chela pected pancreatic head region mass /neoplasm as described measuring approximately 3.9 x 3.8 cm. Norbert mmend MRI abdomen with and without contrast pancreatic mass protocol /MRCP and GI consultation for ev aluation with EUS. Atherosclerotic disease. Colonic diverticular disease. Other findings as described.
[2025-05-23 16:16] LABS: Hematocrit 37.7 % (41.0-53.0); Hemoglobin 12.4 g/dL (13.5-17.5); Mean Corpuscular Hemoglobin 28.7 pg (28.0-32.0); Mean Corpuscular Volume 87.5 fL (80.0-100.0); Nucleated Red Blood Cells % 0.0 %
[2025-05-23 16:30] LABS: Albumin 4.1 g/dL (3.2-4.8); Anion Gap 8 (5-15); BUN/Creatinine Ratio 22.5 (10.0-20.0); Calcium 9.9 mg/dL (8.7-10.4); Carbon Dioxide 22 mmol/L (20-31); Chloride 107 mmol/L (98-107); Potassium 4.3 mmol/L (3.5-5.1); Sodium 137 mmol/L (136-145); Total Protein 6.3 g/dL (5.7-8.2)
[2025-05-23 16:31] LABS: Alanine Aminotransferase 366 U/L (7-40); Alkaline Phosphatase 485 U/L (46-116); Blood Urea Nitrogen 40 mg/dL (9-23); Glucose 107 mg/dL (74-106)
[2025-05-23 16:33] LABS: Bilirubin, Total 3.2 mg/dL (0.2-1.0)
[2025-05-23 17:15] LABS: Urine Protein, UAD Negative (Negative)
--- NOTE | 2025-05-23 19:54 | ECG ---
[facility] Test Date: 2025-05-23 Test Time: 14:52:45 Pat Name: EVELYN MCCABE Department: ED Room: Gender: M Environmental Laboratory Technician: chela : 1950 Requested By: JALIL GARCÍA Order Number: [id number] Reading MD: Measurements Intervals [place] Rate: 58 P: 36 UT: 233 QRS: -23 QRSD: 100 T: 57 QT: 408 QTc: 401 Interpretive Statements Sinus rhythm Prolonged UT interval Borderline left axis deviation Please click the below link to view image of tracing.
[2025-05-23 22:00] VITALS: PULSE 90; RESP 12; O2SAT 96
[2025-05-24] MEDS: fentaNYL CITRATE 100 MCG/2 ML VL IV ONE (00:31)
[2025-05-24 02:23] VITALS: BP 115/58; PULSE 58; RESP 21; TEMP 98.4; O2SAT 96
== END 2025-05-24 02:50 | disposition short-term general hospital (02) ==
LOC: ER 14:36
DX: I12.9 Hypertensive chronic kidney disease with stage 1 through stage 4 chronic kidney disease, or unspecified chronic kidney disease (principal); K83.8 Other specified diseases of biliary tract; I70.90 Unspecified atherosclerosis; K86.9 Disease of pancreas, unspecified; N17.9 Acute kidney failure, unspecified; N18.9 Chronic kidney disease, unspecified; K57.30 Diverticulosis of large intestine without perforation or abscess without bleeding; R74.01 Elevation of levels of liver transaminase levels; E80.6 Other disorders of bilirubin metabolism; E78.5 Hyperlipidemia, unspecified; Z79.899 Other long term (current) drug therapy; Z90.49 Acquired absence of other specified parts of digestive tract; Z94.4 Liver transplant status; Z88.1 Allergy status to other antibiotic agents; Z88.5 Allergy status to narcotic agent; Z88.8 Allergy status to other drugs, medicaments and biological substances
CPT/HCPCS: 36415; 74176; 80053; 81001; 82270; 85025; 86850; 86900; 86901; 93005; 96374; 99285; J3010; J2405

== ENCOUNTER 2025-05-29 11:35 | Emergency (ER) | payer OTHER ==
[~2025-05-29] VITALS: Ht 175.3 cm; Wt 74.1 kg
--- NOTE | 2025-05-29 11:53 | ED.PDOC ---
GI ASSESSMENT HPI Comments 74-year-old male with PMHx Liver Transplant, Pancreatic Cancer, HTN presents with a chief complaint of abdominal pain x onset 0200 this morning with associated nausea. Patient states that his pain is localized to his diffuse abdomen, nonradiating, nonexertional, describes as sharp. Patient reports that he was just at [facility] recently for a biopsy on his pancreas and that is how he found out he has cancer. Patient mentions that he is followed by [facility] since having a liver transplant. Time Seen by MD: 11:45 Primary Care Provider: NONE Reviewed Notes: Nurses Notes, Medications, Allergies Allergies: Coded Allergies: Levofloxacin (Verified Allergy, Severe, 04/02/21) itching/flushing Tramadol (Verified Allergy, Severe, 04/02/21) itching/restlessness/rash Benzyl Alcohol (Verified Allergy, Unknown, 03/10/21) Gabapentin (Verified Allergy, Unknown, 03/10/21) Peginterferon Yohannes-2A (Verified Allergy, Unknown, 03/10/21) Home Meds Active Scripts Hydrocodone-Acetaminophen (Hydrocodone Bitartrate/AC 5-325 mg) 1 Tab Tab, 1 TAB PO Q8HP PRN for 7 Days, #21 TAB Prov:HEIDY CORDERO MD 05/29/25 Reported Medications Ferrous Sulfate (Iron) 325 Mg Tab, 325 MG PO DAILY, TAB 03/11/21 Magnesium Oxide (Magnesium Oxide) 500 Mg Tab, 500 MG PO BID, TAB 03/11/21 Atorvastatin Calcium (Lipitor) 80 Mg Tab, 1 TAB PO DAILY, #30 TAB 5 Refills 03/11/21 Chlorthalidone (Chlorthalidone) 25 Mg Tab, 25 MG PO DAILY, TAB 03/10/21 Metoprolol Succinate (Toprol Xl) 25 Mg Tab, 1 TAB PO HS, #30 TAB 5 Refills 03/10/21 Amlodipine Besylate (NORVASC TABLET) 5 Mg Tb, 10 MG GT DAILY, TAB 03/10/21 Pantoprazole Sodium Sesquihydr (Protonix) 40 Mg Tab, 40 MG PO DAILY, #30 TAB 03/10/21 Mycophenolate Mofetil (Cellcept) 250 Mg Cap, 1 CAP PO BID, #180 CAP 3 Refills 03/10/21 Information Source: Patient Mode of Arrival: Ambulatory Timing: Hours Duration: Since onset Prehospital treatment: None Quality: Sharp Vomitus: None Stool: Normal Severity: Moderate Recent: None Recent Hx of: Abdominal Surgery Pain Location: Diffuse Associated sign and symptoms: Nausea, Abdominal Pain Past Medical History PAST MEDICAL HISTORY: Cancer, High Lipids, HTN, Liver Surgical History: Cholecystectomy Surgical History (Other): LIVER TRANSPLANT Family History Family History: Reviewed,noncontributory to illness Social History Smoker: Non-Smoker Alcohol: Denies ETOH Use Drugs: Denies Drug Use Lives In: Home Constitutional: denies: chills, diaphoresis, fatigue, fever, malaise, sweats, weakness, others EENTM: denies: blurred vision, double vision, ear bleeding, ear discharge, ear drainage, ear pain, ear ringing, eye pain, eye redness, hearing loss, mouth pain, mouth swelling, nasal discharge, nose bleeding, nose congestion, nose pain, photophobia, tearing, throat pain, throat swelling, voice changes, others Respiratory: denies: cough, hemoptysis, orthopnea, SOB at rest, shortness of breath, SOB with excertion, stridor, wheezing, others Cardiovascular: denies: chest pain, dizzy spells, diaphoresis, Dyspnea on exertion, edema, irregular heart beat, left arm pain, lightheadedness, palpitations, PND, syncope, others Gastrointestinal: reports: abdominal pain, nausea; denies: abdomen distended, blood streaked bowels, constipated, diarrhea, dysphagia, difficulty swallowing, hematemesis, melena, poor appetite, poor fluid intake, rectal bleeding, rectal pain, vomiting, others Genitourinary: denies: burning, dysuria, flank pain, frequency, hematuria, incontinence, penile discharge, penile sore, pain, testicle pain, testicle swelling, urgency, others Neurological: denies: dizziness, fainting, headache, left sided numbness, left sided weakness, numbness, paresthesia, pre-existing deficit, right sided numbness, right sided weakness, seizure, speech problems, tingling, tremors, weakness, others Musculoskeletal: denies: back pain, gout, joint pain, joint swelling, muscle pain, muscle stiffness, neck pain, others Integumetry: denies: bruises, change in color, change in hair/nails, dryness, laceration, lesions, lumps, rash, wounds, others Allergic/Immunocompromised: denies: Difficulty Healing, Frequent Infections, Hives, Itching, others Hematologic/Lymphatic: denies: anemia, blood clots, easy bleeding, easy bruising, swollen glands, others Endocrine: denies: excessive hunger, excessive sweating, excessive thirst, excessive urination, flushing, intolerance to cold, intolerance to heat, unexplained weight gain, unexplained weight loss, others Psychiatric: denies: anxiety, bipolar disorder, depression, hopeless, panic disorder, schizophrenia, sleepless, suicidal, others All Other Systems: Reviewed and Negative Physical Exam General Appearance: Mild Distress HEENT: Normal ENT Inspection, Pharynx Normal, TMs Normal Neck: Full Range of Motion, Non-Tender, Normal, Normal Inspection Respiratory: Chest Non-Tender, Lungs Clear, No Accessory Muscle Use, No Resp iratory Distress, Normal Breath Sounds Cardiovascular: No Edema, No JVD, No Murmur, No Gallop, Normal Peripheral Pulses, Regular Rate/Rhythm Breast Exam: Deferred Gastrointestinal: Diffuse, No Organomegaly, No Pulsatile Mass, Normal Bowel Sounds, Soft, Tenderness Genitalia: Deferred Pelvic: Deferred Rectal: Deferred Extremities: No calf tenderness, Normal capillary refill, Normal inspection, Normal range of motion, Non-tender, No pedal edema Musculoskeletal : Apperance: Normal Neurologic: Alert, director financial systems II-XII nml as Tested, No Motor Deficits, Normal Affect, Normal Mood, No Sensory Deficits Cerebellar Function: Normal Reflexes: Normal Skin: Dry, Normal Color, Warm Lymphatic: No Adenopathy Was a procedure done? Was a procedure done?: No GI differential Dx Differential Diagnosis: Gastritis/PUD, Gastroenteritis, Inflammatory BD, Pancreatitis, UTI, Electrolyte Imbalance, Food Poisoning X-Ray, Labs, Meds, VS Vital Signs Date Time Temp Pulse Resp B/P (MAP) Pulse Ox O2 Delivery O2 Flow Rate FiO2 05/29/25 13:36 67 15 136/71 05/29/25 12:56 64 15 128/59 05/29/25 12:35 97.1 64 15 158/59 (92) 98 97.1 05/29/25 11:40 98.3 75 17 115/57 (76) 95 98.3 Lab Test 05/29/25 11:57 05/29/25 11:48 Range/Units White Blood Count 4.7 4.4-10.8 10^3/uL Red Blood Count 4.01 L 4.5-5.90 10^6/uL Hemoglobin 11.6 L 13.5-17.5 g/dL Hematocrit 34.8 L 41.0-53.0 % Mean Corpuscular Volume 87.0 80.0-100.0 fL Mean Corpuscular Hemoglobin 28.9 28.0-32.0 pg Mean Corpuscular Hemoglobin Concent 33.3 32.0-36.0 g/dL Red Cell Distribution Width 15.9 H 11.8-14.3 % Platelet Count 195 140-450 10^3/uL Mean Platelet Volume 8.8 6.9-10.8 fL Neutrophils (%) (Auto) 76.3 37.0-80.0 % Lymphocytes (%) (Auto) 12.9 10.0-50.0 % Monocytes (%) (Auto) 7.3 0.0-12.0 % Eosinophils (%) (Auto) 2.9 0.0-7.0 % Basophils (%) (Auto) 0.6 0.0-2.0 % Neutrophils # (Auto) 3.6 1.6-8.6 10 ^3/uL Lymphocytes # (Auto) 0.6 0.4-5.4 10 ^3/uL Monocytes # (Auto) 0.3 0-1.3 10 ^3/uL Eosinophils # (Auto) 0.1 0-0.8 10 ^3/uL Basophils # (Auto) 0 0-0.2 10 ^3/uL Nucleated Red Blood Cells 0.0 % Prothrombin Time 10.1 9.3-11.8 sec Prothrombin Time INR 0.95 0.9-1.15 Activated Partial Thromboplast Time 25.6 24.5-34.5 SEC Sodium Level 137 136-145 mmol/L Potassium Level 4.2 3.5-5.1 mmol/L Chloride Level 107 98-107 mmol/L Carbon Dioxide Level 21 20-31 mmol/L Anion Gap 9 5-15 Blood Urea Nitrogen 24 H 9-23 mg/dL Creatinine 1.13 0.700-1.30 mg/dL Glomerular Filtration Rate Calc 68 >90 mL/min BUN/Creatinine Ratio 21.2 H 10.0-20.0 Serum Glucose 240 #H 74-106 mg/dL Calcium Level 8.9 8.7-10.4 mg/dL Total Bilirubin 1.1 H 0.2-1.0 mg/dL Aspartate Amino Transferase (AST) 78 H 13-40 U/L Alanine Aminotransferase (ALT) 135 H 7-40 U/L Alkaline Phosphatase 297 H 46-116 U/L Total Protein 6.4 5.7-8.2 g/dL Albumin 3.9 3.2-4.8 g/dL Lipase 140 H 12-53 U/L Urine Color Yellow Yellow Urine Clarity Clear Clear Urine pH 5.5 5.0-9.0 Urine Specific [place] 1.018 1.001-1.035 Urine Protein Negative Negative Urine Ketones Negative Negative Urine Blood Negative Negative /uL Urine Nitrite Negative Negative Urine Bilirubin Negative Negative Urine Urobilinogen Normal Negative mg/dL Urine Leukocyte Esterase Negative Negative /uL Urine RBC <1 0 - 3 /hpf Urine Microscopic WBC 1 0-3 /HPF Urine Squamous Epithelial Cells Few <5 /hpf Urine Bacteria None seen None Seen /hpf Urine Glucose Normal Normal mg/dL Current Medications Medications (Trade) Dose Ordered Sig/Shama Route Start Time Stop Time Status Last Admin Morphine Sulfate 2 mg ONCE ONCE IV 05/29/25 12:00 05/29/25 12:01 DC 05/29/25 12:56 Ondansetron HCl (Zofran) 4 mg ONCE ONCE IV 05/29/25 12:00 05/29/25 12:01 DC 05/29/25 12:55 IV Hep-Lock was established The patient was given morphine 2 mg IV push for the pain The patient was given Zofran 4 mg IV push The urine test is negative The lipase level is elevated at 140 The liver enzymes are elevated The patient's CBC and the rest of the chemistry panel are within normal limits except for hyperglycemia at 240 A CAT scan of the abdomen and pelvis was done and shows: IMPRESSION: Limited evaluation without contrast. Interval placement of metal CBD stent. Dilated pancreatic duct measuring 14 mm. Dilated CBD measuring 9 mm improved from prior examination. Pancreatic head region mass measuring 4.4 x 3 cm. Multiphasic MRI abdomen with and without contrast/ MRCP again recommended to further evaluate and GI/ oncology consultation for further management. Pneumobilia which can be secondary to recent instrumentation, cholangitis. [facility] They have discussed the findings and they did find out that the patient indeed has pancreatic cancer The patient is being referred to his oncologist and is being discharged The [facility] hospitalist has discharge the patient and gave him a prescription of Steele which we did facilitate for the hospitalist At this time, the patient understands and agrees with the management The patient is being discharged by the hospitalist Images Reviewed?: Images reviewed and evaluated by me Time of 1ST Reevaluation: 12:15 Reevaluation 1ST: Improved Patient Education/Counseling: Diagnosis, Treatment, Prognosis, Need For Follow Up Family Education/Counseling: No Family Present SEPSIS Sepsis Screen Physician Orders Ct Ab Pel Wo Con-No Oral Or Iv (05/29/25 11:48) Heplock Iv (05/29/25 11:48) Discharge (05/29/25 15:09) Vital Signs Date Time Temp Pulse Resp B/P (MAP) Pulse Ox O2 Delivery O2 Flow Rate FiO2 05/29/25 13:36 67 15 136/71 05/29/25 12:56 64 15 128/59 05/29/25 12:35 97.1 64 15 158/59 (92) 98 97.1 05/29/25 11:40 98.3 75 17 115/57 (76) 95 98.3 Laboratory Tests Test 05/29/25 11:57 White Blood Count 4.7 10^3/uL (4.4-10.8) Medications Medications Dose Ordered Sig/Shama Route Start Time Stop Time Status Last Admin Dose Admin Morphine Sulfate 2 mg ONCE ONCE IV 05/29/25 12:00 05/29/25 12:01 DC 05/29/25 12:56 Ondansetron HCl 4 mg ONCE ONCE IV 05/29/25 12:00 05/29/25 12:01 DC 05/29/25 12:55 Departure 1 Departure Time of Disposition: 15:18 Impression: Primary Impression: Abdominal pain Qualified Codes: R10.84 - Generalized abdominal pain Additional Impression: Pancreatic cancer Qualified Codes: C25.9 - Malignant neoplasm of pancreas, unspecified Disposition: 01 HOME / SELF CARE / HOMELESS Condition: Fair e-Prescriptions Hydrocodone-Acetaminophen (Hydrocodone Bitartrate/AC 5-325 mg) 1 Tab Tab 1 TAB PO Q8HP PRN for 7 Days, #21 TAB Prov: HEIDY CORDERO MD 05/29/25 Discharged With: Self Critical Care Note Critical Care Time?: No Stability Stability form required: No Heart Score Heart Score: Heart Score Response (Comments) Value History N/A 0 EKG N/A 0 Age N/A 0 Risk Factors N/A 0 Troponin N/A 0 Total 0 I personally scribed for HEIDY CORDERO MD ([email or web address]) on 05/29/25 at 11:53. Electronically submitted by Jose Rueda ([email or web address]). HEIDY CORDERO MD May 29, 2025 11:53
[2025-05-29 12:14] LABS: Hematocrit 34.8 % (41.0-53.0); Hemoglobin 11.6 g/dL (13.5-17.5); Mean Corpuscular Hemoglobin 28.9 pg (28.0-32.0); Mean Corpuscular Volume 87.0 fL (80.0-100.0); Nucleated Red Blood Cells % 0.0 %
[2025-05-29 12:31] LABS: Alanine Aminotransferase 135 U/L (7-40); Albumin 3.9 g/dL (3.2-4.8); Alkaline Phosphatase 297 U/L (46-116); Anion Gap 9 (5-15); BUN/Creatinine Ratio 21.2 (10.0-20.0); Bilirubin, Total 1.1 mg/dL (0.2-1.0); Blood Urea Nitrogen 24 mg/dL (9-23); Calcium 8.9 mg/dL (8.7-10.4); Carbon Dioxide 21 mmol/L (20-31); Chloride 107 mmol/L (98-107); Glucose 240 mg/dL (74-106); Lipase 140 U/L (12-53); Potassium 4.2 mmol/L (3.5-5.1); Sodium 137 mmol/L (136-145); Total Protein 6.4 g/dL (5.7-8.2)
[2025-05-29 12:33] LABS: Urine Protein, UAD Negative (Negative)
[2025-05-29 12:34] LABS: INR 0.95 (0.9-1.15); Partial Thromboplastin Time 25.6 SEC (24.5-34.5); Prothrombin Time 10.1 sec (9.3-11.8)
--- NOTE | 2025-05-29 12:54 | DVH ---
Indication: pain Technique: CT axial images of the abdomen and pelvis are obtained without contrast. Coronal and sagit arnel reformats were obtained. Radiation Dose Information: CTDI volume is 0.07 mGy. Dose-length product is 439.95 mGy*cm Comparison: CT CT AB PEL WO CON-NO ORAL OR IV on DOS: 05/23/25 FINDINGS: There is limited interpretation of the abdomen and pelvis without administration of intravenous contr ast. The lung bases demonstrate atelectasis. No pleural effusion. Adrenal glands, spleen unremarkable in shape. Dilatation of the pancreatic duct up to 14 mm. Suspecte d pancreatic head region mass measuring 4.4 by 3 cm. Interval placement of metal CBD stent. Pneumobil ia. CBD dilated to 9 mm. Kidneys unremarkable in shape. No hydronephrosis. Stomach is partially distended. Small bowel loops nondistended. Moderate volume stool in the colon. Normal appendix. Abdominal aortic atherosclerotic disease. Bladder partially distended. No free pelvic fluid. Prostat e brachytherapy seeds. No inguinal lymphadenopathy. Moderate thoracolumbar degenerative disc disease. 5 mm anterolisthesis of L4 upon L5. IMPRESSION: Limited evaluation without contrast. Interval placement of metal CBD stent. Dilated pancreatic duct measuring 14 mm. Dilated CBD measuring 9 mm improved from prior examination. Pancreatic head region mass measuring 4.4 x 3 cm. Multiphasic MRI abdomen with and without contrast/ MRCP again recommended to further evaluate and GI/ oncology consultation for further management. Pneumobilia which can be secondary to recent instrumentation, cholangitis. Other findings as described.
[2025-05-29] MEDS: ONDANSETRON HCL 4 MG/2 ML VIAL IV ONE (12:55)
[2025-05-29] MEDS: MORPHINE SULFATE INJ 2 MG/ml SYRG IV ONE (12:56)
[2025-05-29] MEDS ORDERED: HYDR-4902 PO ×2 (15:13→15:15)
[2025-05-29 15:30] VITALS: BP 122/61; PULSE 67; RESP 15; TEMP 98.7; O2SAT 98
[2025-05-29] MEDS ORDERED: DOCU-94 PO (15:30)
--- NOTE | 2025-05-29 18:05 | DVHINCON2 ---
DATE OF CONSULTATION: 05/29/2025 CHIEF COMPLAINT: Consultation for abdominal pain. HISTORY OF PRESENT ILLNESS: A 74-year-old male with significant past medical history for hepatic cancer status post hepatic transplant in 2017. The patient recently was diagnosed with pancreatic mass, transferred to [facility] 4 days ago while here for abdominal pain symptoms for EUS with common bile duct stenting and pancreatic mass biopsy, who presents today with right upper quadrant epigastric region abdominal pain. The patient says that he has got his pancreatic biopsy result and he does have pancreatic cancer, which is a new diagnosis for him. He does follow up with Dr. Martinez out of [facility] hepatic specialist since prior to 2017. The patient says around 2:00 a.m. this morning he started having this epigastric/right upper quadrant region pain, kind of sharp in nature associated with some nausea that started and was kind of unrelenting, so he decided to come in for evaluation. The patient overall currently during my examination feels improved. He did receive a dose of morphine in the emergency room. He does have Zofran at home, which he takes as needed for nausea symptoms. The patient otherwise denies any fevers or chills, any chest pain or shortness of breath. He has a mild cough ever since he had his EUS procedure a couple of days ago at [facility]. The patient otherwise denies any diarrhea, constipation, bloody or tarry stools, urinary frequency, urgency, or burning sensation symptoms. PAST MEDICAL HISTORY: Hepatic transplant recipient in 2017, recent diagnosis of pancreatic cancer, status post EUS with common bile duct stenting 3 days ago. PAST SURGICAL HISTORY: Multiple hernia repairs, cholecystectomy, status post liver transplant. SOCIAL HISTORY: No tobacco, no alcohol, no illicit drugs. MEDICATIONS AT HOME: Per medical reconciliation. MEDICATION ALLERGIES: LEVAQUIN, TRAMADOL, AND GABAPENTIN. REVIEW OF SYSTEMS: A 10-point review of systems was covered with the patient and was negative with the exception to what was present in the history of present illness. PHYSICAL EXAMINATION: VITAL SIGNS: Temperature 98.3, pulse rate 75, respiratory rate is 17, blood pressure 115/57, pulse ox about 95% to 98% on room air. GENERAL: Seems to be alert and oriented x 4, not in acute distress, male, sitting up in a chair. HEENT: Normocephalic, atraumatic. Extraocular muscles are intact. Pupils seem to be equally round and reactive to light and accommodations. Scleral icterus is present. CARDIOVASCULAR: S1 and S2 positive. Regular rate and rhythm. No rubs, gallops, or murmurs. LUNGS: Seem to be clear to auscultation bilaterally. No wheezing, rhonchi, or rales. ABDOMEN: Seems to be soft, nontender, nondistended. Positive bowel sounds. No guarding or rebound. EXTREMITIES: No lower extremity edema, clubbing, or cyanosis. NEUROLOGIC: No focal deficits on examination. LABORATORY WORKUP: Shows a white count of 4.7, H and H of 11.6/34.8, platelet count of 185,000. Sodium 137, potassium 4.2, chloride 107, carbon dioxide of 21, anion gap of 9, BUN of 24, creatinine 1.13, glucose of 240. AST of 78, ALT of 135, and alkaline phosphatase of 297. INR 0.95. Urinalysis shows 1+ bilirubin, urobilinogen of 2, 1 rbc, negative nitrites, negative leukocyte esterase. IMAGING: CT of the abdomen and pelvis without contrast was also completed. It shows limited evaluation without contrast. Interval placement of metal CBD stent. Dilated pancreatic duct measuring 14 mm. Dilated CBD measuring 9 mm, improved from prior examination. Pancreatic head region mass measuring 4 x 3 cm. Multiphesic MRI abdomen with and without contrast/MRCP again is recommended to further evaluate and GI Oncology consultation for further management. Pneumobilia, which can be secondary to recent instrumentation. Other findings as described above. DIAGNOSES: * Abdominal pain. * Pancreatic cancer. * Recent remote history of CBD stenting. PLAN: The patient was seen and evaluated. The patient's vitals are stable. The patient is afebrile. No leukocytosis. The patient's abdominal pain improved with 1 dose of morphine. The patient is no longer having any pain. The patient does take Zofran p.r.n. as needed for nausea and vomiting symptoms, which he has had for a long time. The patient does follow up with his hepatic specialist, Dr. Martinez out of [facility]. The patient recently was transitioned here from [facility] due to abnormal LFTs and elevated bilirubin due to CBD obstruction due to a pancreatic mass, which is a new finding for him. The patient is currently status post EUS with CBD stenting done a couple of days ago at [facility]. The patient's LFTs have been downtrending. Bilirubin has also down-trended. The patient's numbers are looking improved. CT of the abdomen also shows improvement in CBD dilation when comparing to CT scan that was done here on 05/25. The patient has been called and informed that his pancreatic mass is cancer and awaiting to follow up with the [facility]. The patient will be given imaging results, CTs, and laboratory results to call to his hepatic specialist out of [facility] to review the labs and imaging results that were done today. The patient, otherwise, from my standpoint, is stable for discharge. The patient has been informed that he needs better pain control. We will give him [place] 5/325 p.r.n. b.i.d. for pain control for 15 days. We will arrange for him to see his primary care provider within the next 7-10 days as well as we will give him a referral for pain management and the patient to schedule a followup with his hepatic specialist within the next 7-10 days for further discussion of his recent findings. The patient, again, based on his laboratory and imaging, everything is currently improving. The patient will be given some pain control medications due to his recent finding of pancreatic cancer with obstruction status post CBD stenting. The patient has been informed in case if he develops any chest pain, shortness of breath, intractable nausea, vomiting, intolerance of liquid or food intolerance, fevers, chills, or any other concerning signs and/or symptoms, to return to the emergency room. The patient's followup will be arranged by [facility] Case Management. Neymar Amador MD LM/ESTHER TID: [id number] RECEIPT: [id number]
== END 2025-05-29 15:34 | disposition home or self-care (01) ==
LOC: ER 11:35
DX: R10.84 Generalized abdominal pain (principal); C25.9 Malignant neoplasm of pancreas, unspecified; E78.5 Hyperlipidemia, unspecified; I10 Essential (primary) hypertension; Z94.4 Liver transplant status; Z90.49 Acquired absence of other specified parts of digestive tract; Z88.8 Allergy status to other drugs, medicaments and biological substances; Z88.5 Allergy status to narcotic agent; Z88.1 Allergy status to other antibiotic agents; Z85.07 Personal history of malignant neoplasm of pancreas; Z79.899 Other long term (current) drug therapy; Z79.624 Long term (current) use of inhibitors of nucleotide synthesis
CPT/HCPCS: 36415; 74176; 80053; 81001; 83690; 85025; 85610; 85730; 96374; 96375; 99285; J2270; J2405